=== PATIENT | female | born 1985 | race Caucasian/White ===

== ENCOUNTER 2020-09-06 09:48 | Emergency (ER) | payer OTHER ==
[2020-09-06 10:32] LABS: BASOPHILS % (AUTO) 0.5 %; EOSINOPHILS % (AUTO) 0.2 %; HCT - HEMATOCRIT 43.5 % (37.0-47.0); HGB - HEMOGLOBIN 13.3 g/dL (12.0-16.0); LYMPHOCYTES # (AUTO) 0.9 10^3/uL (1.5-3.5); LYMPHOCYTES % (AUTO) 10.2 %; MEAN CORPUSCULAR HEMOGLOBIN 23.8 pg (27.0-31.0); MEAN CORPUSCULAR HGB CONC 30.6 g/dL (32.0-36.0); MEAN CORPUSCULAR VOLUME 77.8 fL (81.0-99.0); MEAN PLATELET VOLUME 9.8 fL (7.9-10.8); MONOCYTES # (AUTO) 0.3 10^3/uL (0.0-1.0); MONOCYTES % (AUTO) 3.7 %; NEUTROPHILS # (AUTO) 7.5 10^3/uL (1.5-6.6); NEUTROPHILS % (AUTO) 84.7 %; PLT - PLATELET COUNT 233 10^3/uL (130-450); RED BLOOD COUNT 5.59 10^6/uL (4.20-5.40); RED CELL DISTRIBUTION WIDTH 15.3 % (12.0-15.0); WHITE BLOOD COUNT 8.8 x10^3/uL (4.8-10.8)
[2020-09-06 10:45] LABS: ALBUMIN 4.2 g/dL (3.2-5.5); BILIRUBIN,TOTAL 0.7 mg/dL (0.2-1.0); CALCIUM 9.6 mg/dL (8.5-10.3); CREATININE 0.8 mg/dL (0.4-1.0); POTASSIUM 3.9 mmol/L (3.5-5.0); TOTAL PROTEIN 8.4 g/dL (6.7-8.2)
[2020-09-06 10:52] LABS: BILIRUBIN,URINE NEGATIVE (NEGATIVE); GLUCOSE, URINE (UA) NEGATIVE (NEGATIVE); KETONES,URINE (UA) NEGATIVE (NEGATIVE); LEUKOCYTE ESTERASE, URINE NEGATIVE (NEGATIVE); NITRITE,URINE NEGATIVE (NEGATIVE); OCCULT BLOOD,URINE NEGATIVE (NEGATIVE); PH,URINE 8.5 PH (5.0-7.5); PROTEIN,URINE TRACE mg/dL (NEGATIVE); UROBILINOGEN,URINE 0.2 (NORMAL) E.U./dL (NORMAL)
[2020-09-06 10:54] LABS: CLARITY,URINE CLOUDY (CLEAR); HCG UR QUAL NEGATIVE
[2020-09-06 10:57] LABS: BACTERIA,URINE Many /HPF (None Seen); RBC,URINE 0-5 /HPF (0-5); SQUAMOUS EPITHELIAL CELL,UR FEW Squamous (<= Few); WBC,URINE 0-3 /HPF (0-5)
--- NOTE | 2020-09-06 13:12 | ED Physician Documentation ---
PD HPI ABD PAIN - Stated complaint Stated Complaint: ABD PX/VOMITING - Chief complaint Chief Complaint: Abd Pain - History obtained from History obtained from: Patient - History of Present Illness Timing - onset: Last night (about 1 am, abrupt onset and has continued into today.) Timing - duration: Hours (9) Timing - details: Abrupt onset, Still present Quality: Cramping, Aching, Pain Location: RUQ, Epigastric Radiation: Upper back. No: Chest, Right flank Improved by: No: Vomiting Worsened by: Eating, Palpation. No: Moving, Breathing Associated symptoms: Nausea, Vomiting (several times since onset of the pain), Loss of appetite. No: Fever, Hematemesis, Diarrhea, Constipation Similar symptoms before: No diagnosis (she states initial episode about a year ago and had intermittent episodes every month or so for several hours. Has now had them every week or so, with episodes worse and lasting longer. Current episode is first time with vomiting too.) Recently seen: Not recently seen Review of Systems Constitutional: denies: Fever, Chills Nose: denies: Rhinorrhea / runny nose, Congestion Throat: denies: Sore throat Respiratory: denies: Cough GI: reports: Abdominal Pain, Nausea, Vomiting. denies: Abdominal Swelling, Constipation, Diarrhea, Hematemesis, Bloody / black stool : denies: Dysuria, Frequency Skin: denies: Rash Musculoskeletal: reports: Back pain. denies: Neck pain Neurologic: reports: Generalized weakness. denies: Focal weakness, Numbness, Altered mental status, Headache Endocrine: denies: Weight loss PD PAST MEDICAL HISTORY - Past Medical History Cardiovascular: None Respiratory: None Endocrine/Autoimmune: None GI: None REVENUE INVESTIGATOR: Endometriosis : None HEENT: None Psych: None Musculoskeletal: None Derm: None - Past Surgical History Past Surgical History: Yes /REVENUE INVESTIGATOR: section, Endometrial ablation, Hysterectomy, Oophrectomy - Present Medications Home Medications: Ambulatory Orders Medication Instructions Recorded Confirmed Levothyroxine Inj [Synthroid Inj] 100 mcg PO DAILY 08/25/13 08/25/13 Oxycodone HCl/Acetaminophen 1 each PO Q6HR PRN #20 tablet 08/26/13 [Percocet 5-325 mg Tablet] Dicyclomine [Bentyl] 10 mg PO BID #20 cap 09/06/20 Docusate Sodium 100Mg Capsule 100 mg PO DAILY #20 cap 09/06/20 [Colace 100Mg Capsule] Famotidine [Pepcid] 20 mg PO DAILY #30 tablet 09/06/20 HYDROcod/ACETAM 5/325 [[place] 5/325] 1 ea PO Q6H PRN #15 tablet 09/06/20 Ondansetron Odt [Zofran] 4 mg TL Q6H PRN #15 tablet 09/06/20 - Allergies Allergies/Adverse Reactions: Allergies Allergy/AdvReac Type Severity Reaction Status Date / Time No Known Drug Allergies Allergy Verified 09/06/20 10:15 - Social History Does the pt smoke?: No Smoking Status: Never smoker Does the pt drink ETOH?: No Does the pt have substance abuse?: No - Immunizations Immunizations are current?: Yes - POLST Patient has POLST: No PD ED PE NORMAL - Vitals Vital signs reviewed: Yes - General General: Alert and oriented X 3, Well developed/nourished, Other (appears in pain upper abd and holding emesis bag. ) - HEENT HEENT: PERRL, EOMI (no jaundice) - Neck Neck: Supple, no meningeal sign, No adenopathy - Cardiac Cardiac: RRR, No murmur - Respiratory Respiratory: Clear bilaterally - Abdomen Abdomen: Normal bowel sounds, Soft, Non distended, No organomegaly, Other (tender epigastric and RUQ area with some guarding. No percussion nor rebound tenderness. Lower abd not tender. ) - Female Female : Deferred - Rectal Rectal: Deferred - Derm Derm: Normal color, Warm and dry - Extremities Extremities: No tenderness to palpate, Normal ROM s pain, No calf tenderness / cord - Neuro Neuro: Alert and oriented X 3, No motor deficit, Normal speech Results - Vitals Vitals: Vital Signs - 24 hr 09/06/20 09/06/20 09/06/20 10:13 12:04 16:24 Temperature 36.0 C L 36.0 C L 37.2 C Heart Rate 93 97 77 Respiratory 16 16 16 Rate Blood Pressure 150/87 H 159/98 H 134/90 H O2 Saturation 97 99 99 Oxygen O2 Source Room air - Labs Labs: Laboratory Tests 09/06/20 09/06/20 09/06/20 10:25 10:28 10:28 WBC 8.8 RBC 5.59 H Hgb 13.3 Hct 43.5 MCV 77.8 L MCH 23.8 L MCHC 30.6 L RDW 15.3 H Plt Count 233 MPV 9.8 Neut # (Auto) 7.5 H Lymph # (Auto) 0.9 L Turner # (Auto) 0.3 Eos # (Auto) 0.0 Baso # (Auto) 0.0 Absolute Nucleated RBC 0.00 Nucleated RBC % 0.0 Sodium 136 Potassium 3.9 Chloride 100 L Carbon Dioxide 26 Anion Gap 10.0 BUN 13 Creatinine 0.8 Estimated GFR (MDRD) 82 L Glucose 150 H Calcium 9.6 Total Bilirubin 0.7 AST 18 ALT 19 Alkaline Phosphatase 82 Total Protein 8.4 H Albumin 4.2 Globulin 4.2 Albumin/Globulin Ratio 1.0 Lipase 22 Urine Color YELLOW Urine Clarity CLOUDY Urine pH 8.5 H Ur Specific [place] 1.015 Urine Protein TRACE Urine Glucose (UA) NEGATIVE Urine Ketones NEGATIVE Urine Occult Blood NEGATIVE Urine Nitrite NEGATIVE Urine Bilirubin NEGATIVE Urine Urobilinogen 0.2 (NORMAL) Ur Leukocyte Esterase NEGATIVE Urine RBC 0-5 Urine WBC 0-3 Ur Squamous Epith Cells FEW Squamous Urine Bacteria Many H Ur Microscopic Review INDICATED Urine Culture Comments NOT INDICATED Urine HCG, Qual NEGATIVE - Rads (name of study) abd/pelvic CT Radiology: Prelim report reviewed (normal gallbladder. No acute other findings. s/p hysterectomy. ), See rad report PD MEDICAL DECISION MAKING - ED course Complexity details: reviewed results (no gallbladder problems noted. ), re- evaluated patient (improved with IV meds. ), considered differential (her pattern of intermittent severe upper abdominal pains sounds biliary colic. Can get imaging. Our U/S is unavailable until this evening so got CT. ), d/w patient ED course: I think her symptoms location, pattern and character are c/w biliary colic. Referred to surgery (her PCP is not established as yet, moved recently, and is with [facility]). Suggest HIDA scan. less likely gastritis/ulcer, but can treat with famotidine. Departure - Departure Disposition: 01 Home, Self Care Clinical Impression: Upper abdominal pain Nausea and vomiting Qualifiers: Vomiting type: unspecified Vomiting Intractability: intractable Qualified Code(s): R11.2 - Nausea with vomiting, unspecified Condition: Stable Record reviewed to determine appropriate education?: Yes Instructions: ED Abdominal Pain Unkn Cause Follow-Up: Kristopher Alejandra MD [Provider Admit Priv/Credential] - Felipe Pan MD [Provider Admit Priv/Credential] - Prescriptions: Dicyclomine [Bentyl] 10 mg PO BID #20 cap Docusate Sodium 100Mg Capsule [Colace 100Mg Capsule] 100 mg PO DAILY #20 cap HYDROcod/ACETAM 5/325 [[place] 5/325] 1 ea PO Q6H PRN #15 tablet PRN Reason: Pain Famotidine [Pepcid] 20 mg PO DAILY #30 tablet Ondansetron Odt [Zofran] 4 mg TL Q6H PRN #15 tablet PRN Reason: Nausea / Vomiting Comments: Your CT scan and blood tests appear normal. However your symptoms and pattern are suggestive of gallbladder spasms. I would suggest following up with your primary care or one of the surgeons for further evaluation. In particular would be a functional test of the gallbladder called a HIDA scan to see if it is spasming. Meanwhile stay well-hydrated and avoid fatty foods. Use dicyclomine either as needed for spasms or twice daily to reduce the chance of spasms. It can be constipating so you add a stool softener as well. Add Docusate daily. If you have a pain episode, add Tylenol or hydrocodone if needed for pain and ondansetron for nausea. On the possibility of this being stomach related instead, use famotidine acid reducing medicine daily for the next month. Follow-up with your primary care or surgery in particular for further evaluation. Discharge Date/Time: 09/06/20 16:52
[2020-09-06] MEDS ORDERED: ONDANSETRON 4 MG/2 ML VIAL IVP STA (13:17)
[2020-09-06] MEDS ORDERED: FAMOTIDINE 20 MG/2 ML VIAL IVP STA (13:47)
[2020-09-06] MEDS ORDERED: HYDROmorphone 1 MG/ML CARPUJECT IVP STA ×2 (13:47→15:10)
[2020-09-06] MEDS ORDERED: IOVERSOL 320 100 ML VIAL IVP ONE ×2 (13:54→16:04)
[2020-09-06] MEDS ORDERED: SODIUM CHLORIDE 0.9% 1,000 ML IV STA (15:10)
--- NOTE | 2020-09-06 15:22 | CT Report ---
PROCEDURE: Abdomen/Pelvis W INDICATIONS: upper abd pain and vomiting CONTRAST: IV CONTRAST: Optiray 320 ml: 100 PO CONTRAST: *NO PO CONTRAST TECHNIQUE: After the administration of IV contrast, 5 mm thick sections acquired from the diaphragms to the symp hysis. 5 mm thick coronal and sagittal reformats were acquired. For radiation dose reduction, the f ollowing was used: automated exposure control, adjustment of mA and/or kV according to patient size. COMPARISON: 08/25/2013. FINDINGS: Image quality: Excellent. ABDOMEN: Lung bases: Lung bases are clear. Heart size is normal. Solid organs: Liver is normal in size. Moderate hepatic steatosis is seen. No discrete hepatic lesion . Spleen is normal in size and enhancement. Gallbladder is within normal limits. Biliary system is n on dilated. Pancreas enhances normally. No adrenal nodules. Kidneys demonstrate normal size and en hancement, without hydronephrosis. Peritoneum and bowel: Bowel loops demonstrate normal wall thickness and caliber. No free fluid or a ir. Appendix is visualized in right lower quadrant and is normal in size and appearance. No abscess collection. Nodes and vessels: No retroperitoneal or mesenteric adenopathy by size criteria. Aorta and inferior vena cava are normal in size. Miscellaneous: Small umbilical hernia containing fat only. PELVIS: Genitourinary: Bladder wall thickness is normal. Miscellaneous: No inguinal hernias or adenopathy. Bones: No suspicious bony lesions. No vertebral body compression fractures. IMPRESSION: 1. Hepatic steatosis, no discrete hepatic lesion. Normal-appearing gallbladder, spleen and pancreas. 2. No obstructing renal stone or hydronephrosis. 3. No bowel obstruction or abnormal bowel wall thickening. No free fluid of free air. Normal appendix . Reviewed by: Shlomo Osborn MD on 09/06/2020 3:20 PM PDT Approved by: Shlomo Osborn MD on 09/06/2020 3:20 PM PDT Station ID: [id number]
[2020-09-06 16:25] VITALS: BP 134/90
== END 2020-09-06 16:52 | disposition home or self-care (01) ==
LOC: ED 09:48
DX: R10.11 Right upper quadrant pain (principal); R10.13 Epigastric pain; R11.2 Nausea with vomiting, unspecified; K76.0 Fatty (change of) liver, not elsewhere classified
CPT/HCPCS: 36415; 74177; 80053; 81001; 81025; 83690; 85025; 96361; 96374; 96375; 99284; 99285; J1170; Q9967; 81003; 87086